=== PATIENT | female | born 1990 | race Hispanic/Latino ===

== ENCOUNTER 2022-05-21 09:57 | Emergency (ER) | payer BC, MEDICAID, OTHER ==
[~2022-05-21] VITALS: Ht 162.6 cm; Wt 76.2 kg
[2022-05-21 09:58] VITALS: BP_DIAS 75
[2022-05-21 10:02] VITALS: BP_SYST 75
[2022-05-21] MEDS ORDERED: TETANUS/DIPHTHERIA TOXOID [ADULT] 0.5 ML VIAL IM ONE (11:30)
[2022-05-21] MEDS ORDERED: SILVER SULFADIAZINE CREAM 400 GM TP SCH (11:30)
[2022-05-21] MEDS ORDERED: IBUP-2070 PO (11:48)
[2022-05-21] MEDS ORDERED: SILV20CR11 TP (11:48)
[2022-05-21] MEDS ORDERED: SILVER SULFADIAZINE CREAM 50 GM TP ONE (12:00)
== END 2022-05-21 11:53 | disposition home or self-care (01) ==
LOC: EDH 09:57
DX: T22.212A Burn of second degree of left forearm, initial encounter (principal); X19.XXXA Contact with other heat and hot substances, initial encounter; Y93.89 Activity, other specified; Y92.89 Other specified places as the place of occurrence of the external cause; Y99.0 Civilian activity done for income or pay
CPT/HCPCS: 90471; 90714

== ENCOUNTER 2022-12-16 20:29 | Emergency (ER) | payer MEDICAID, OTHER ==
[~2022-12-16] VITALS: Ht 162.6 cm; Wt 79.4 kg
[~2022-12-16 20:29] MED LIST: IBUP-2070 PO; SILV20CR11 TP
[2022-12-16] MEDS ORDERED: ACETAMINOPHEN 325 MG TAB PO ONE (21:00)
[2022-12-16 21:08] LABS: APPEARANCE,URINE CLEAR (CLEAR); BILIRUBIN,URINE NEGATIVE (NEGATIVE); COLOR,URINE COLORLESS (YELLOW); GLUCOSE, URINE (UA) NEGATIVE (NEGATIVE); KETONES,URINE NEGATIVE (NEGATIVE); LEUKOCYTE ESTERASE ,URINE NEGATIVE Leu/uL (NEGATIVE); NITRATE,URINE NEGATIVE (NEGATIVE); OCCULT BLOOD,URINE NEGATIVE (NEGATIVE); PROTEIN,URINE NEGATIVE (NEGATIVE); RBC,URINE 0-1 /HPF (0-1); UROBILINOGEN,URINE 0.2 mg/dL (0.2-1.0); WBC,URINE 0-1 /HPF (0-1)
[2022-12-16 21:33] LABS: INFLUENZA TYPE A Negative For Type A (NEGATIVE); INFLUENZA TYPE B Negative For Type B (NEGATIVE)
[2022-12-16 21:57] VITALS: TEMP 99.1
[2022-12-16 22:21] VITALS: BP 129/76; PULSE 100; RESP 17; O2SAT 100
== END 2022-12-16 22:26 | disposition home or self-care (01) ==
LOC: EDH 20:29
DX: O98.511 Other viral diseases complicating pregnancy, first trimester (principal); J06.9 Acute upper respiratory infection, unspecified; J00 Acute nasopharyngitis [common cold]; R05.9 Cough, unspecified; Z20.822 Contact with and (suspected) exposure to COVID-19; Z3A.12 12 weeks gestation of pregnancy; Z79.899 Other long term (current) drug therapy
CPT/HCPCS: 81001; 87804